=== PATIENT | male | born 1945 | race American Indian/Alaskan Native ===

== ENCOUNTER 2019-01-21 12:02 | Emergency (ER) | payer MEDICARE ==
--- NOTE | 2019-01-21 12:45 | Event Note ---
ED Screening Note Date of service: 01/21/19 Time: 12:43 ED Screening Note: 73 y o male presents to ED cc of left sided shoulder pain radiating down arm PMH: htn, dm This initial assessment/diagnostic orders/clinical plan/treatment(s) is/are subject to change based on patients health status, clinical progression and re- assessment by fellow clinical providers in the ED. Further treatment and workup at subsequent clinical providers discretion. Patient/guardian urged not to elope from the ED as their condition may be serious if not clinically assessed and managed. Initial orders include: shouldser xr
--- NOTE | 2019-01-21 13:12 | XRay Report ---
LEFT SHOULDER, 3 VIEWS INDICATION: pain. COMPARISON: None. IMPRESSION: No acute osseous or soft tissue abnormality. Mild osteoarthritic changes are identifi ed at the glenohumeral joint and acromioclavicular joint. The soft tissues are unremarkable. Signer Name: Steven Godfrey Jr, MD Signed: 01/21/2019 1:08 PM Workstation Name: [id number]
[2019-01-21 16:04] VITALS: BP 152/100
--- NOTE | 2019-01-21 16:15 | XRay Report ---
CHEST 2 VIEWS INDICATION: left shoulder pain that radiated in down arm. COMPARISON: None FINDINGS: Support devices: None. Heart: Within normal limits. Lungs/pleura: No acute air space or interstitial disease. No pneumothorax. Additional findings: None. IMPRESSION: No acute findings. Signer Name: Steven Godfrey Jr, MD Signed: 01/21/2019 4:11 PM Workstation Name: [id number]
[2019-01-21 17:01] LABS: Basophils % (Auto) 0.4 % (0.0-1.8); Eosinophils % (Auto) 0.7 % (0.0-4.3); Hematocrit 43.4 % (35.5-45.6); Hemoglobin 14.4 gm/dl (11.8-15.2); Lymphocytes # (Auto) 2.7 K/mm3 (1.2-5.4); Lymphocytes % (Auto) 38.5 % (13.4-35.0); Mean Corpuscular HGB Conc 33 % (32-34); Mean Corpuscular Volume 89 fl (84-94); Monocytes # (Auto) 0.7 K/mm3 (0.0-0.8); Monocytes % (Auto) 10.5 % (0.0-7.3); Platelet Count 225 K/mm3 (140-440); Red Cell Distribution Width 14.1 % (13.2-15.2)
[2019-01-21 17:24] LABS: BUN/Creatinine Ratio 9; Blood Urea Nitrogen 11 mg/dL (9-20); Hemolysis Index 52
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
[2019-01-21] MEDS ORDERED: KETOROLAC 60 MG/2 ML INJ IM ONE (18:16)
== END 2019-01-21 18:26 | disposition home or self-care (01) ==
LOC: ED 12:02
DX: M19.012 Primary osteoarthritis, left shoulder (principal); I10 Essential (primary) hypertension; E11.9 Type 2 diabetes mellitus without complications; K21.9 Gastro-esophageal reflux disease without esophagitis; Z87.891 Personal history of nicotine dependence; Z90.89 Acquired absence of other organs; Z79.899 Other long term (current) drug therapy
CPT/HCPCS: 36415; 71046; 73030; 80048; 84484; 85025; 93005; 93010; 96372; 99284; J1885

== ENCOUNTER 2021-08-03 11:16 | Emergency (ER) | payer MEDICAID, MEDICARE ==
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
[2021-08-03 19:05] VITALS: BP 133/78
== END 2021-08-03 19:04 | disposition home or self-care (01) ==
LOC: ED 11:16
DX: S40.861A Insect bite (nonvenomous) of right upper arm, initial encounter (principal); L03.113 Cellulitis of right upper limb; L73.9 Follicular disorder, unspecified; I10 Essential (primary) hypertension; W57.XXXA Bitten or stung by nonvenomous insect and other nonvenomous arthropods, initial encounter; Y93.89 Activity, other specified; Y92.89 Other specified places as the place of occurrence of the external cause; Y99.8 Other external cause status
CPT/HCPCS: 99282